=== PATIENT | male | born 1990 | race Caucasian/White ===

== ENCOUNTER 2020-04-09 11:57 | Emergency (ER) | payer BC ==
[~2020-04-09] VITALS: Ht 175.3 cm; Wt 93.0 kg
[2020-04-09 12:25] VITALS: BP_SYST 125
[2020-04-09] MEDS ORDERED: predniSONE 20 MG TABLET PO ONE (12:30)
[2020-04-09] MEDS ORDERED: ALBUTEROL SULFATE 0.083% 2.5 MG/3 ML VIAL.NEB INH ONE (12:30)
[2020-04-09] MEDS ORDERED: IPRATROPIUM BROM 0.5 MG/2.5 ML VIAL.NEB (ATROVENT) INH ONE (12:30)
[2020-04-09] MEDS ORDERED: BACITRACIN 1 GM OINT TP ONE (14:00)
[2020-04-09] MEDS ORDERED: DIPH-TET-PERTUS Vaccine 0.5 ML VIAL (ADACEL) I.M. ONE (14:00)
[2020-04-09 14:19] VITALS: BP_SYST 125
== END 2020-04-09 14:19 | disposition home or self-care (01) ==
LOC: SED 11:57
DX: S61.211A Laceration without foreign body of left index finger without damage to nail, initial encounter (principal); W22.8XXA Striking against or struck by other objects, initial encounter; Y93.89 Activity, other specified; Y92.89 Other specified places as the place of occurrence of the external cause; Y99.8 Other external cause status
CPT/HCPCS: 73140-TC; 90715; 99283

== ENCOUNTER 2020-09-08 21:23 | Emergency (ER) | payer SELFPAY ==
[~2020-09-08] VITALS: Ht 177.8 cm; Wt 88.9 kg
[2020-09-08 21:29] VITALS: BP_SYST 142
[2020-09-08 22:02] VITALS: BP_SYST 142
== END 2020-09-08 22:02 | disposition home or self-care (01) ==
LOC: SED 21:23
DX: K42.9 Umbilical hernia without obstruction or gangrene (principal); Z88.0 Allergy status to penicillin
CPT/HCPCS: 99281